=== PATIENT | female | born 1960 | race Caucasian/White ===

== ENCOUNTER 2016-07-27 19:09 | Emergency (ER) | payer MEDICARE, OTHER ==
[~2016-07-27] VITALS: Ht 157.5 cm; Wt 63.5 kg
[~2016-07-27 19:09] MED LIST: CYMBALTA30 MG PO; CYTOMEL5 MCG ORAL; HYDROCODON-ACE1 EAC4 ORAL; IBUPROFEN600 MG ORAL; MIRTAZAPINE45 MG PO; OXYCONTIN20 MG PO; OXYCONTIN40 MG PO; PERCOCET 10-321 EACH ORAL; SYNTHROID150 MCG PO; TOPIRAMATE25 MG PO; VIIBRYD40 MG PO
[2016-07-27 19:45] VITALS: BP 100/62
[2016-07-27] MEDS ORDERED: AZITHROMYCIN250 MG ORAL (19:45)
[2016-07-27] MEDS ORDERED: PROMETHAZINE-D118 ML ORAL (19:45)
[2016-07-27 19:58] VITALS: BP 122/60
--- NOTE | 2016-07-29 19:05 | Emergency Room Report ---
History of Present Illness General Chief Complaint: Flu Like Symptoms Source: Patient Present Illness HPI 56-year-old female presents to ED complaining of cough and congestive symptoms x3 weeks. States cough is productive with yellowish phlegm. Notes runny nose. Denies fevers chills. Denies ear ache or sore throat. Denies shortness of breath. No other aggravating relieving factors. Denies sick contacts recent travel. Denies any other associated symptom Allergies: Coded Allergies: METRONIDAZOLE (Verified Allergy, Unknown, 05/09/13) Uncoded Allergies: MAO INHIBITORS (Allergy, Unknown, 05/09/13) Patient History Past Medical History: migraines Past Surgical History: none Pertinent Family History: none Social History: Denies: alcohol use, drug use, smoking Now: No Immunizations: UTD Reviewed Nursing Documentation: PMH: Agreed, PSxH: Agreed Nursing Documentation-PMH Hx Cardiac Problems: Yes Hx Cancer: No Hx Gastrointestinal Problems: Yes Hx Neurological Problems: Yes - CHRONIC DAILY MIGRANES Hx Memory Loss: Yes Hx Headaches: Yes Review of Systems All Other Systems: negative except mentioned in HPI Physical Exam Vital Signs Date Time Temp Pulse Resp B/P Pulse Ox O2 Delivery O2 Flow Rate FiO2 07/27/16 19:17 98.1 70 15 95/56 96 Room Air Sp02 EP Interpretation: reviewed, normal General Appearance: no apparent distress, alert, GCS 15, non-toxic Head: normocephalic Eyes: bilateral eye PERRL, bilateral eye normal inspection ENT: hearing grossly normal, normal pharynx, no angioedema, normal voice Neck: normal inspection Respiratory: chest non-tender, lungs clear, normal breath sounds, speaking full sentences Cardiovascular #1: regular rate, rhythm, no edema Gastrointestinal: normal inspection Rectal: deferred Genitourinary: no CVA tenderness Musculoskeletal: normal inspection Neurologic: alert, oriented x3, responsive, motor strength/tone normal, sensory intact, speech normal Psychiatric: normal inspection Skin: normal inspection Lymphatic: normal inspection Medical Decision Making Diagnostic Impression: Primary Impression: Atypical pneumonia ER Course Hospital Course 56-year-old female presents to ED complaining of cough, runny nose x3 weeks Differential diagnoses include: URI, pharyngitis, otitis media, asthma Clinical course Patient placed on stretcher. After initial history, physical exam reveals a young male in no acute distress. Bilateral TM unremarkable. No pharyngeal erythema. No tonsillar exudates. No lymphadenopathy. lungs clear. abdomen soft. Given persistence of symptoms for 3 weeks we will treat with antibiotics and treat as atypical pneumonia Diagnosis -atypical pneumonia Stable and discharged home with prescription for cough syrup, Z-Malik. Instructed to followup with PMD. Return to ED if symptoms recur or worsen Last Vital Signs Date Time Temp Pulse Resp B/P Pulse Ox O2 Delivery O2 Flow Rate FiO2 07/27/16 19:58 97.8 72 17 122/60 96 Room Air Status: improved Disposition: HOME, SELF-CARE Condition: Stable Scripts D-Methorphan Hb/Prometh Hcl* (PROMETHAZINE-DM SYRUP*) 118 Ml Syrup 5 ML ORAL Q6H Y for For Cough for 7 Days, ML 0 Refills Prov: ANDREA MILLER M.D. 07/27/16 Azithromycin* (ZITHROMAX*) 250 Mg Tablet 250 MG ORAL DAILY, #6 TAB 0 Refills Take two tablets by mouth today, then take one tablet by mouth daily for four days Prov: ANDREA MILLER M.D. 07/27/16 Referrals: NON PHYSICIAN (PCP) Patient Instructions: Community-Acquired Pneumonia, Adult, [id number] ANDREA MILLER M.D. Jul 29, 2016 19:04
== END 2016-07-27 20:00 | disposition home or self-care (01) ==
LOC: EMR 20:00
DX: J18.9 Pneumonia, unspecified organism (principal); Z86.79 Personal history of other diseases of the circulatory system; Z87.19 Personal history of other diseases of the digestive system
CPT/HCPCS: 99284

== ENCOUNTER 2016-08-05 17:34 | Emergency (ER) | payer OTHER ==
[~2016-08-05] VITALS: Ht 157.5 cm; Wt 61.2 kg
[~2016-08-05 17:34] MED LIST changes: +AZITHROMYCIN250 MG ORAL; +PROMETHAZINE-D118 ML ORAL
[2016-08-05] MEDS ORDERED: SUBOXONE 8 MG-1 EAC2 SL (17:57)
[2016-08-05] MEDS ORDERED: KLONOPIN1 MG ORAL (17:58)
[2016-08-05 18:02] VITALS: BP 124/71
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
[2016-08-05 19:41] VITALS: BP 127/74
[2016-08-05 19:42] VITALS: BP 124/71
--- NOTE | 2016-08-06 09:32 | Diagnostic Imaging Report ---
Indications: Left knee pain Technique: 3 views of the left knee Findings: Comparison: None No fracture, dislocation, lytic destruction, periosteal reaction, joint space widening or effusion, surrounding soft tissue abnormality, or other acute changes demonstrated. Small well-corticated calcific/ossific densities reside in the regions of the distal aspect of the quadriceps tendon, proximal aspect of the patellar tendon. Small spurs emanate from the respective patellar insertion sites. Small osteophytes margins of patellofemoral and knee joint spaces without narrowing. No additional chronic changes demonstrated. IMPRESSION: No evidence of acute abnormality Mild osteoarthritis Patellar enthesophytes Quadriceps and patellar tendinopathy
--- NOTE | 2016-08-08 15:54 | Diagnostic Imaging Report ---
Indications: Neck pain Technique: 5 views of the cervical spine. Findings: Comparison: None. Lordotic curvature is straightened several millimeter anterior subluxation of C7 on T1, T1 and T2. Remainder of vertebral alignment is intact. No fracture, facet subluxation or dislocation, prevertebral soft tissue swelling, or other acute changes are identified. Osteophytes at margins of C4-5 through C7-T1 disc spaces. C4-5, C7-T1 disc space is narrowed.. Spinal canal and left neural foramina appear normal in caliber. Suboptimal positioning of other oblique view or metastatic evaluation of lower right neural foramina. IMPRESSION: Straightening of cervical lordosis. This may be secondary to degenerative changes, positioning and/or muscular spasm.. C7-T1 and T1-T2 grade 1 anterior spondylolisthesis, nonspecific, likely chronic degenerative in nature. Lateral flexion and extension radiographs may be obtained to ascertain stability. Multilevel degenerative disc disease. Neural impingement not excludable. Consider MRI for more detailed evaluation, as clinically indicated.
== END 2016-08-05 19:42 | disposition home or self-care (01) ==
LOC: EMR 18:21
DX: S80.02XA Contusion of left knee, initial encounter (principal); S60.512A Abrasion of left hand, initial encounter; Y04.0XXA Assault by unarmed brawl or fight, initial encounter; Y92.810 Car as the place of occurrence of the external cause; M17.12 Unilateral primary osteoarthritis, left knee; M76.52 Patellar tendinitis, left knee
CPT/HCPCS: 72050; 99283

== ENCOUNTER 2018-09-19 15:28 | Inpatient (IN) | payer MEDICARE, OTHER ==
[~2018-09-19] VITALS: Ht 157.5 cm; Wt 64.4 kg
[~2018-09-19 15:28] MED LIST changes: +KLONOPIN1 MG ORAL; +SUBOXONE 8 MG-1 EAC2 SL
[2018-09-19 15:40] VITALS: BP 94/61
--- NOTE | 2018-09-19 15:40 | NUR ---
ED Nurse Note: Patient walked into ED c/o of a feral cat bite sustained 3 days ago, laure states that she was currently at [facility] urgent care where she received antibiotics. at time of arrival patients left hand is currently inflamed, no tunneling noted but there are stripes of redness going up the left arm. patient is alert and oriented x4, ambulatory with a steady gait.
[2018-09-19] MEDS ORDERED: AMOX TR-K CLV1 EAC2 ORAL (15:42)
[2018-09-19] MEDS ORDERED: Ampicillin/Sulbactam Sod 3 GM in NS 110 ML IVPB ONE (16:00)
[2018-09-19 16:34] LABS: BASOPHILS % (AUTO) 1.7 % (0.0-2.0); EOSINOPHILS % (AUTO) 0.6 % (0.0-3.0); HEMATOCRIT 40.2 % (37.0-47.0); HEMOGLOBIN 13.4 G/DL (12.0-16.0); LYMPHOCYTES % (AUTO) 19.4 % (20.0-45.0); MEAN CORPUSCULAR VOLUME 92 FL (80-99); MONOCYTES % (AUTO) 9.8 % (1.0-10.0); NEUTROPHILS % (AUTO) 68.6 % (45.0-75.0); PLATELET COUNT 233 K/UL (150-450); RED BLOOD COUNT 4.36 M/UL (4.20-5.40); RED CELL DISTRIBUTION WIDTH 11.5 % (11.6-14.8); WHITE BLOOD COUNT 7.2 K/UL (4.8-10.8)
[2018-09-19 16:47] LABS: ANION GAP 7 mmol/L (5-15); BLOOD UREA NITROGEN 18 mg/dL (7-18); CALCIUM 8.8 MG/DL (8.5-10.1); CARBON DIOXIDE 26 MMOL/L (21-32); CHLORIDE 107 MMOL/L (98-107); POTASSIUM 4.6 MMOL/L (3.5-5.1); SODIUM 140 MMOL/L (136-145)
[2018-09-19 16:51] LABS: ALANINE AMINOTRANSFERASE 43 U/L (12-78); ALBUMIN 3.4 G/DL (3.4-5.0); ALKALINE PHOSPHATASE 73 U/L (46-116); ASPARTATE AMINO TRANSFERASE 81 U/L (15-37); BILIRUBIN,TOTAL 0.4 MG/DL (0.2-1.0)
--- NOTE | 2018-09-19 19:17 | NUR ---
HAND-OFF: Report received from Jake Causey RN .
--- NOTE | 2018-09-19 20:05 | Emergency Room Report ---
History of Present Illness General Chief Complaint: Skin Rash/Abscess Source: Patient Present Illness HPI 58-year-old female presents ED for evaluation. Complaining of left hand pain and swelling. States that she was bitten by a cat 2 days ago. States cat was vaccinated. Patient was seen at [facility] urgent care yesterday and given IM antibiotics in discharged with Augmentin. Patient went back today and noticed that the erythema was extending to the wrist and was referred to ER. Patient denies fevers or chills. Denies pain. No other aggravating relieving factors. Denies any other associated symptoms Allergies: Coded Allergies: METRONIDAZOLE (Verified Allergy, Unknown, 05/09/13) Uncoded Allergies: MAO INHIBITORS (Allergy, Unknown, 05/09/13) Patient History Past Medical History: CAD, migraines Past Surgical History: none Pertinent Family History: none Social History: Denies: smoking, alcohol use, drug use Now: No Immunizations: UTD Reviewed Nursing Documentation: PMH: Agreed; PSxH: Agreed Nursing Documentation-PMH Past Medical History: No History, Except For Hx Cardiac Problems: Yes Hx Gastrointestinal Problems: Yes Hx Neurological Problems: Yes - CHRONIC DAILY MIGRANES Hx Memory Loss: Yes Hx Headaches: Yes Review of Systems All Other Systems: negative except mentioned in HPI Physical Exam Vital Signs Date Time Temp Pulse Resp B/P (MAP) Pulse Ox O2 Delivery O2 Flow Rate FiO2 09/19/18 15:36 98.2 75 19 94/61 99 Room Air Sp02 EP Interpretation: reviewed, normal General Appearance: no apparent distress, alert, GCS 15, non-toxic Head: normocephalic Eyes: bilateral eye normal inspection, bilateral eye PERRL ENT: normal ENT inspection Neck: normal inspection Respiratory: normal inspection Cardiovascular #1: normal inspection Gastrointestinal: normal inspection Rectal: deferred Genitourinary: no CVA tenderness Musculoskeletal: swelling - L hand Neurologic: alert, oriented x3, responsive, motor strength/tone normal, sensory intact, speech normal Psychiatric: normal inspection Skin: other - erythema/induration L thumb extending to L wrist Lymphatic: normal inspection Medical Decision Making Diagnostic Impression: Primary Impression: Cellulitis of left hand Additional Impression: Cat bite Qualified Codes: W55.01XA - Bitten by cat, initial encounter ER Course Hospital Course 58-year-old female presents to ED with redness, swelling to L hand s/p cat bite Differential diagnoses include: Cellulitis, abscess, rash. Clinical course Patient placed on stretcher. After initial history and physical I ordered labs , blood Cx, IVFs labs reviewed -no leukocytosis, Hb/Hct stable, no electrolyte abnormalities. Reviewed case with Dr. Galan (plastics/hand); he agrees patient is failing outpatient therapy and needs admission for IV antibiotics. he will consult broad spectrum antibiotics given. Case discussed with Dr Douglas and he agreed to accept the patient to his service for further care and support Diagnosis - cellulitis of L hand, cat bite Patient admitted to floor in serious condition Labs Test 09/19/18 16:20 White Blood Count 7.2 K/UL (4.8-10.8) Red Blood Count 4.36 M/UL (4.20-5.40) Hemoglobin 13.4 G/DL (12.0-16.0) Hematocrit 40.2 % (37.0-47.0) Mean Corpuscular Volume 92 FL (80-99) Mean Corpuscular Hemoglobin 30.7 PG (27.0-31.0) Mean Corpuscular Hemoglobin Concent 33.3 G/DL (32.0-36.0) Red Cell Distribution Width 11.5 % (11.6-14.8) Platelet Count 233 K/UL (150-450) Mean Platelet Volume 5.1 FL (6.5-10.1) Neutrophils (%) (Auto) 68.6 % (45.0-75.0) Lymphocytes (%) (Auto) 19.4 % (20.0-45.0) Monocytes (%) (Auto) 9.8 % (1.0-10.0) Eosinophils (%) (Auto) 0.6 % (0.0-3.0) Basophils (%) (Auto) 1.7 % (0.0-2.0) Sodium Level 140 MMOL/L (136-145) Potassium Level 4.6 MMOL/L (3.5-5.1) Chloride Level 107 MMOL/L (98-107) Carbon Dioxide Level 26 MMOL/L (21-32) Anion Gap 7 mmol/L (5-15) Blood Urea Nitrogen 18 mg/dL (7-18) Creatinine 1.0 MG/DL (0.55-1.30) Estimat Glomerular Filtration Rate 56.5 mL/min (>60) Glucose Level 112 MG/DL (74-106) Lactic Acid Level 1.20 mmol/L (0.4-2.0) Calcium Level 8.8 MG/DL (8.5-10.1) Total Bilirubin 0.4 MG/DL (0.2-1.0) Aspartate Amino Transf (AST/SGOT) 81 U/L (15-37) Alanine Aminotransferase (ALT/SGPT) 43 U/L (12-78) Alkaline Phosphatase 73 U/L (46-116) Total Protein 6.8 G/DL (6.4-8.2) Albumin 3.4 G/DL (3.4-5.0) Globulin 3.4 g/dL Albumin/Globulin Ratio 1.0 (1.0-2.7) Last Vital Signs Date Time Temp Pulse Resp B/P (MAP) Pulse Ox O2 Delivery O2 Flow Rate FiO2 09/19/18 15:40 98.2 75 19 94/61 99 Room Air Status: improved Disposition: ADMITTED INPATIENT Condition: Serious Referrals: [facility],REFERRING (PCP) Dean Ram MD Sep 19, 2018 20:05
[2018-09-19] MEDS ORDERED: Albuterol/Ipratropium 3ml neb HHN PRN (20:15)
[2018-09-19] MEDS ORDERED: Miralax 17gm pkt ORAL PRN (20:15)
[2018-09-19] MEDS ORDERED: Nitroglycerin Subl 0.4mg tab SL PRN (20:15)
[2018-09-19] MEDS ORDERED: Morphine Sulfate 2mg/ml Inj(IV/IM USE ONLY) IVP PRN (20:15)
--- NOTE | 2018-09-19 20:34 | NUR ---
ED Nurse Note: PATIENT CLEARED FOR TRANSPORT TO MED SUR[facility]. PATIENT IS A&OX4, NO S/S OF ACUTE DISTRESS. REPORT CALLED INTO EUGENIA RN PRIOR TO TRANSPORT. PATIENT WILL BE ESCORTED BY [facility] TO FLOOR.
[2018-09-19 21:00] VITALS: BP 113/65
--- NOTE | 2018-09-19 22:00 | NUR ---
NURSE NOTES: RECEIVED REPORT FROM SHAQUILLE BAUTISTA. PATIENT IN BED, AOX4. IV IN PLACE, PATENT. HAS COMPLAINTS OF PAIN, WILL BE GIVEN PAIN MEDICATION ORDERED. CELLULITIS ON LEFT HAND NOTED TO SWOLLEN AND REDNESS, NO OPEN WOUND OR DRAINAGE. ALSO SLIGHT REDNESS ON LEFT FOREARM. WCP TAKEN. NO S/S DISTRESS NOTED. REVIEWED PATIENT BELONGINGS WITH PATIENT VERBALLY STATING THEM PATIENT DID NOT WANT NURSE GOING THROUGH HER BELONGINGS AND PATIENT HAD MEDICATION BOTTLES THAT SHE DID NOT WANT TO GIVE TO THE PHARMACY STATING "NO I WANT TO KEEP MY MEDICINE", NURSE EXPLAINED THAT THE MEDICATION WILL BE KEPT SAFE IN THE HOSPITAL PHARMACY AND SHE CAN HAVE IT BACK UPON DISCHARGE, PATIENT STILL ADAMANTLY REFUSED. NURSE ALSO EXPLAINED THAT WHILE PATIENT IS IN THE HOSPITAL, SHE CANNOT TAKE ANY OF THE MEDICATIONS, PATIENT VERBALIZED UNDERSTANDING. CHARGE NURSE AWARE. PATIENT REFUSED TO HAVE BELONGINGS PUT IN SAFE AND SIGNED THE BELONGINGS LIST. BED IN LOWEST POSITION, CALL LIGHT WITHIN REACH. WILL CONTINUE TO MONITOR.
[2018-09-19] MEDS: Heparin 5000 units/ml inj SUBQ SCH (22:07)
[2018-09-19] MEDS: Cefepime HCl 2 GM in D5W 110 ML IV SCH (22:18)
[2018-09-20] MEDS: Ampicillin/Sulbactam Sod 1.5 GM in NS 55 ML IVPB SCH ×4 (00:39→19:20)
[2018-09-20 00:59] VITALS: BP 98/55
[2018-09-20] MEDS: Vancomycin 1 GM in D5W 275 ML IVPB SCH ×2 (01:16→19:56)
[2018-09-20 04:27] VITALS: BP 94/57
--- NOTE | 2018-09-20 07:27 | NUR ---
NURSE NOTES: PATIENT IV ACCESS ON RIGHT HAND 20 GAUGE BECAME PUFFY BUT PATIENT DENIES PAIN OR TENDERNESS, IV REMOVED. NEW IV ACCESS LEFT HAND 24 GAUGE, PATENT.
[2018-09-20 07:29] LABS: EOSINOPHILS % (AUTO) 1.9 % (0.0-3.0); HEMATOCRIT 38.4 % (37.0-47.0); HEMOGLOBIN 12.8 G/DL (12.0-16.0); LYMPHOCYTES % (AUTO) 39.8 % (20.0-45.0); MEAN CORPUSCULAR VOLUME 94 FL (80-99); MONOCYTES % (AUTO) 10.2 % (1.0-10.0); NEUTROPHILS % (AUTO) 47.2 % (45.0-75.0); PLATELET COUNT 225 K/UL (150-450); WHITE BLOOD COUNT 5.1 K/UL (4.8-10.8)
--- NOTE | 2018-09-20 07:39 | NUR ---
HAND-OFF: Report given to KIKO AMATO RN.
--- NOTE | 2018-09-20 07:40 | NUR ---
NURSE NOTES: Patient is awake and alert,respirations unlabored,patient getting Venous Duplex as ordered,no complaints at this time,call light within reach.
[2018-09-20 07:47] LABS: ALANINE AMINOTRANSFERASE 39 U/L (12-78); ALBUMIN 2.7 G/DL (3.4-5.0); ALBUMIN/GLOBULIN RATIO 0.9 (1.0-2.7); ALKALINE PHOSPHATASE 64 U/L (46-116); ANION GAP 7 mmol/L (5-15); ASPARTATE AMINO TRANSFERASE 58 U/L (15-37); BILIRUBIN,TOTAL 0.3 MG/DL (0.2-1.0); BLOOD UREA NITROGEN 20 mg/dL (7-18); CALCIUM 8.4 MG/DL (8.5-10.1); CARBON DIOXIDE 26 MMOL/L (21-32); CHLORIDE 109 MMOL/L (98-107); CREATININE 0.8 MG/DL (0.55-1.30); POTASSIUM 3.8 MMOL/L (3.5-5.1); SODIUM 142 MMOL/L (136-145)
[2018-09-20 08:33] VITALS: BP 90/57
[2018-09-20] MEDS: DULoxetine 30mg cap ORAL SCH ×2 (08:54→18:00)
[2018-09-20] MEDS: Heparin 5000 units/ml inj SUBQ SCH ×2 (08:57→20:53)
--- NOTE | 2018-09-20 10:34 | NUR ---
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 98.2, Resp. 19, O2Sat 99 Room Air RDW 11.5, MPV 5.1, Lymph% 19.4 IS: Doppler Scan of lower extremity venous Morphine Sulfate IVP NS IV x1L Ampicillin Sodium IVPB Med/Surge Status DC plan return to home
[2018-09-20] MEDS: Cefepime HCl 2 GM in D5W 110 ML IV SCH (10:54)
[2018-09-20 13:00] VITALS: BP 129/57
--- NOTE | 2018-09-20 16:12 | Consultation ---
History of Present Illness General Date patient seen: Sep 20, 2018 Chief Complaint: Skin Rash/Abscess Present Illness HPI 58-year-old female presented to ED for evaluation of left hand pain and swelling. She was bitten by a cat 2 days ago. . Patient was seen at [facility] urgent care yesterday and given IM antibiotics in discharged with Augmentin. She went back today and noticed that the erythema was extending to the wrist and was referred to ER. She is admitted for further management. Allergies: Coded Allergies: METRONIDAZOLE (Verified Allergy, Unknown, 05/09/13) Uncoded Allergies: MAO INHIBITORS (Allergy, Unknown, 05/09/13) Medication History Scheduled Amoxicillin/Potassium Clav 875-125 Mg Tab* (Amox Tr-K Clv 875-125 Mg Tab*), 1 TAB ORAL EVERY 12 HOURS, (Reported) Azithromycin* (Zithromax*), 250 MG ORAL DAILY Buprenorphine Hcl/Naloxone Hcl (Suboxone 8 Mg-2 Mg Tablet Sl*), 1 TAB SL BID, ( Reported) Clonazepam* (Klonopin*), 1 MG ORAL Q6H, (Reported) Duloxetine Hcl* (Cymbalta*), 60 MG PO BID, (Reported) Levothyroxine Sodium* (Synthroid*), 100 MCG PO DAILY, (Reported) Liothyronine Sodium* (Cytomel*), 75 MCG ORAL DAILY, (Reported) Mirtazapine* (Remeron*), 90 MG PO QHS, (Reported) Scheduled PRN D-Methorphan Hb/Prometh Hcl* (Promethazine-Dm Syrup*), 5 ML ORAL Q6H PRN for For Cough Hydrocodone Bit/Acetaminophen 5-500 (Vicodin 5-500), 1 TAB ORAL Q6H PRN for For Pain, (Reported) Patient History Healthcare decision maker N Resuscitation status Advanced Directive on File Review of Systems All Other Systems: negative except mentioned in HPI Physical Exam General Appearance: WD/WN Lines, tubes and drains: peripheral HEENT: normocephalic, atraumatic Neck: non-tender, normal alignment Respiratory/Chest: chest wall non-tender, lungs clear Cardiovascular/Chest: normal peripheral pulses, normal rate Abdomen: normal bowel sounds, non tender Genitourinary/Rectal: normal genital exam, normal rectal exam Skin Exam: normal pigmentation 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 grossly normal Last 24 Hour Vital Signs Date Time Temp Pulse Resp B/P (MAP) Pulse Ox O2 Delivery O2 Flow Rate FiO2 09/20/18 13:00 97.7 65 18 129/57 (81) 97 09/20/18 08:33 98.2 60 18 90/57 (68) 95 09/20/18 04:27 97.8 63 18 94/57 (69) 97 09/20/18 00:59 95 09/20/18 00:59 98.6 68 18 98/55 (69) 09/19/18 23:16 98.2 09/19/18 21:30 Room Air 09/19/18 21:00 97.7 60 18 113/65 (81) 100 09/19/18 20:36 98.2 75 19 94/61 99 Room Air Intake and Output 09/19/18 09/20/18 19:00 07:00 Intake Total 110 ml 1560.0 ml Balance 110 ml 1560.0 ml Intake Oral 120 ml IV Total 110 ml 1440.0 ml # Voids 1 1 Laboratory Tests Test 09/19/18 16:20 09/20/18 05:23 White Blood Count 7.2 K/UL (4.8-10.8) 5.1 K/UL (4.8-10.8) Red Blood Count 4.36 M/UL (4.20-5.40) 4.10 M/UL (4.20-5.40) L Hemoglobin 13.4 G/DL (12.0-16.0) 12.8 G/DL (12.0-16.0) Hematocrit 40.2 % (37.0-47.0) 38.4 % (37.0-47.0) Mean Corpuscular Volume 92 FL (80-99) 94 FL (80-99) Mean Corpuscular Hemoglobin 30.7 PG (27.0-31.0) 31.3 PG (27.0-31.0) H Mean Corpuscular Hemoglobin Concent 33.3 G/DL (32.0-36.0) 33.5 G/DL (32.0-36.0) Red Cell Distribution Width 11.5 % (11.6-14.8) L 12.0 % (11.6-14.8) Platelet Count 233 K/UL (150-450) 225 K/UL (150-450) Mean Platelet Volume 5.1 FL (6.5-10.1) L 5.9 FL (6.5-10.1) L Neutrophils (%) (Auto) 68.6 % (45.0-75.0) 47.2 % (45.0-75.0) Lymphocytes (%) (Auto) 19.4 % (20.0-45.0) L 39.8 % (20.0-45.0) Monocytes (%) (Auto) 9.8 % (1.0-10.0) 10.2 % (1.0-10.0) H Eosinophils (%) (Auto) 0.6 % (0.0-3.0) 1.9 % (0.0-3.0) Basophils (%) (Auto) 1.7 % (0.0-2.0) 1.0 % (0.0-2.0) Sodium Level 140 MMOL/L (136-145) 142 MMOL/L (136-145) Potassium Level 4.6 MMOL/L (3.5-5.1) 3.8 MMOL/L (3.5-5.1) Chloride Level 107 MMOL/L (98-107) 109 MMOL/L (98-107) H Carbon Dioxide Level 26 MMOL/L (21-32) 26 MMOL/L (21-32) Anion Gap 7 mmol/L (5-15) 7 mmol/L (5-15) Blood Urea Nitrogen 18 mg/dL (7-18) 20 mg/dL (7-18) H Creatinine 1.0 MG/DL (0.55-1.30) 0.8 MG/DL (0.55-1.30) Estimat Glomerular Filtration Rate 56.5 mL/min (>60) > 60 mL/min (>60) Glucose Level 112 MG/DL (74-106) H 98 MG/DL (74-106) Lactic Acid Level 1.20 mmol/L (0.4-2.0) Calcium Level 8.8 MG/DL (8.5-10.1) 8.4 MG/DL (8.5-10.1) L Total Bilirubin 0.4 MG/DL (0.2-1.0) 0.3 MG/DL (0.2-1.0) Aspartate Amino Transf (AST/SGOT) 81 U/L (15-37) H 58 U/L (15-37) H Alanine Aminotransferase (ALT/SGPT) 43 U/L (12-78) 39 U/L (12-78) Alkaline Phosphatase 73 U/L (46-116) 64 U/L (46-116) Total Protein 6.8 G/DL (6.4-8.2) 5.7 G/DL (6.4-8.2) L Albumin 3.4 G/DL (3.4-5.0) 2.7 G/DL (3.4-5.0) L Globulin 3.4 g/dL 3.0 g/dL Albumin/Globulin Ratio 1.0 (1.0-2.7) 0.9 (1.0-2.7) L Height (Feet): 5 Height (Inches): 2.00 Weight (Pounds): 142 Medications Current Medications Medications (Trade) Dose Ordered Sig/Eugene Route PRN Reason Start Time Stop Time Status Last Admin Dose Admin Acetaminophen (Tylenol) 650 mg Q4H PRN ORAL fever 09/19/18 20:15 10/19/18 20:14 Albuterol/ Ipratropium (Albuterol/ Ipratropium) 3 ml Q4H PRN HHN Shortness of Breath 09/19/18 20:15 09/24/18 20:14 Ampicillin Sodium/ Sulbactam Sodium 1.5 gm/Sodium Chloride 55 ml @ 110 mls/hr Q6HR IVPB 09/20/18 00:00 09/27/18 00:00 09/20/18 13:06 Cefepime HCl 2 gm/ Dextrose 110 ml @ 220 mls/hr Q12H IV 09/19/18 22:00 09/26/18 21:59 09/20/18 10:54 Clonazepam (KlonoPIN) 1 mg Q6HR ORAL 09/20/18 00:00 09/27/18 00:00 09/20/18 13:06 Dextrose (Dextrose 50%) 25 ml STAT PRN IV Hypoglycemia 09/19/18 20:15 10/19/18 20:14 Dextrose (Dextrose 50%) 50 ml Q30M PRN IV Hypoglycemia 09/19/18 20:15 10/19/18 20:14 Duloxetine HCl (Cymbalta) 60 mg BID ORAL 09/20/18 09:00 10/20/18 08:59 Heparin Sodium (Porcine) (Heparin 5000 units/ml) 5,000 units EVERY 12 HOURS SUBQ 09/19/18 21:00 10/19/18 20:59 09/20/18 08:57 Levothyroxine Sodium (Synthroid) 100 mcg ACBREAKFAST ORAL 09/20/18 06:30 10/20/18 06:29 09/20/18 05:46 Morphine Sulfate (Morphine Sulfate) 2 mg Q4H PRN IVP Moderate Pain (Pain Scale 4-6) 09/19/18 20:15 09/26/18 20:14 09/19/18 22:46 Nitroglycerin (Ntg) 0.4 mg Q5M PRN SL Prn Chest Pain 09/19/18 20:15 10/19/18 20:14 Ondansetron HCl (Zofran) 4 mg Q6H PRN IVP Nausea & Vomiting 09/19/18 20:15 10/19/18 20:14 Polyethylene Glycol (Miralax) 17 gm DAILYPRN PRN ORAL Constipation 09/19/18 20:15 10/19/18 20:14 Temazepam (Restoril) 15 mg HSPRN PRN ORAL Insomnia 09/19/18 20:15 09/26/18 20:14 09/19/18 22:03 Vancomycin HCl 1 gm/Dextrose 275 ml @ 183.3 mls/ hr Q24H IVPB 09/20/18 00:30 09/25/18 00:29 09/20/18 01:16 Assessment/Plan Problem List: (1) Cellulitis of left hand ICD Codes: L03.114 - Cellulitis of left upper limb SNOMED: 60778197, [id number] (2) Cat bite ICD Codes: W55.01XA - Bitten by cat, initial encounter SNOMED: 384164460, [id number] Qualifiers: Qualified Codes: W55.01XA - Bitten by cat, initial encounter Assessment/Plan pt improving but she wants to go home today, I will ask ID about what abx to discharge her with. Velma Maguire MD Sep 20, 2018 16:12
[2018-09-20] MEDS ORDERED: BACTRIM DOUBLE S1 E1 ORAL (16:14)
[2018-09-20] MEDS ORDERED: CLEOCIN HCL300 MG PO (16:16)
[2018-09-20 16:35] VITALS: BP 106/52
--- NOTE | 2018-09-20 16:51 | Consultation ---
History of Present Illness General Date patient seen: Sep 20, 2018 Chief Complaint: Skin Rash/Abscess Present Illness HPI 58 y/o F with hx of CAD, migraine headaches presented to ED on 09/19 with L hand pain and swelling after a cat bite 2 days prior to admission. She was seen at [facility] urgent care 1 day prior to admission and was given IM antibiotics and discharged with Augmentin. Day of admission patient noticed erythema was extending to wrist. Denies f/c. Allergies: Coded Allergies: METRONIDAZOLE (Verified Allergy, Unknown, 05/09/13) Uncoded Allergies: MAO INHIBITORS (Allergy, Unknown, 05/09/13) Medication History Scheduled Amoxicillin/Potassium Clav 875-125 Mg Tab* (Amox Tr-K Clv 875-125 Mg Tab*), 1 TAB ORAL EVERY 12 HOURS, (Reported) Azithromycin* (Zithromax*), 250 MG ORAL DAILY Buprenorphine Hcl/Naloxone Hcl (Suboxone 8 Mg-2 Mg Tablet Sl*), 1 TAB SL BID, ( Reported) Clindamycin Hcl (Cleocin Hcl), 300 MG PO EVERY 6 HOURS Clonazepam* (Klonopin*), 1 MG ORAL Q6H, (Reported) Duloxetine Hcl* (Cymbalta*), 60 MG PO BID, (Reported) Levothyroxine Sodium* (Synthroid*), 100 MCG PO DAILY, (Reported) Liothyronine Sodium* (Cytomel*), 75 MCG ORAL DAILY, (Reported) Mirtazapine* (Remeron*), 90 MG PO QHS, (Reported) Trimethoprim/Sulfamethoxazole (Bactrim 400-80 mg Tablet), 7 TAB ORAL TWICE A DAY Scheduled PRN D-Methorphan Hb/Prometh Hcl* (Promethazine-Dm Syrup*), 5 ML ORAL Q6H PRN for For Cough Hydrocodone Bit/Acetaminophen 5-500 (Vicodin 5-500), 1 TAB ORAL Q6H PRN for For Pain, (Reported) Patient History Healthcare decision maker N Resuscitation status Advanced Directive on File Patient History Narrative Pmhx: as above Shx: Denies: smoking, alcohol use, drug use Fhx: non contributory Review of Systems All Other Systems: negative except mentioned in HPI Physical Exam Physical Exam Narrative General Appearance: WD/WN Lines, tubes and drains: peripheral HEENT: normocephalic, atraumatic Neck: non-tender, normal alignment Respiratory/Chest: chest wall non-tender, lungs clear Cardiovascular/Chest: normal peripheral pulses, normal rate Abdomen: normal bowel sounds, non tender Skin Exam: normal pigmentation 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 normal Last 24 Hour Vital Signs Date Time Temp Pulse Resp B/P (MAP) Pulse Ox O2 Delivery O2 Flow Rate FiO2 09/20/18 16:35 97.7 64 18 106/52 (70) 98 09/20/18 13:00 97.7 65 18 129/57 (81) 97 09/20/18 08:33 98.2 60 18 90/57 (68) 95 09/20/18 04:27 97.8 63 18 94/57 (69) 97 09/20/18 00:59 95 09/20/18 00:59 98.6 68 18 98/55 (69) 09/19/18 23:16 98.2 09/19/18 21:30 Room Air 09/19/18 21:00 97.7 60 18 113/65 (81) 100 09/19/18 20:36 98.2 75 19 94/61 99 Room Air Intake and Output 09/19/18 09/20/18 19:00 07:00 Intake Total 110 ml 1560.0 ml Balance 110 ml 1560.0 ml Intake Oral 120 ml IV Total 110 ml 1440.0 ml # Voids 1 1 Laboratory Tests Test 09/20/18 05:23 White Blood Count 5.1 K/UL (4.8-10.8) Red Blood Count 4.10 M/UL (4.20-5.40) L Hemoglobin 12.8 G/DL (12.0-16.0) Hematocrit 38.4 % (37.0-47.0) Mean Corpuscular Volume 94 FL (80-99) Mean Corpuscular Hemoglobin 31.3 PG (27.0-31.0) H Mean Corpuscular Hemoglobin Concent 33.5 G/DL (32.0-36.0) Red Cell Distribution Width 12.0 % (11.6-14.8) Platelet Count 225 K/UL (150-450) Mean Platelet Volume 5.9 FL (6.5-10.1) L Neutrophils (%) (Auto) 47.2 % (45.0-75.0) Lymphocytes (%) (Auto) 39.8 % (20.0-45.0) Monocytes (%) (Auto) 10.2 % (1.0-10.0) H Eosinophils (%) (Auto) 1.9 % (0.0-3.0) Basophils (%) (Auto) 1.0 % (0.0-2.0) Sodium Level 142 MMOL/L (136-145) Potassium Level 3.8 MMOL/L (3.5-5.1) Chloride Level 109 MMOL/L (98-107) H Carbon Dioxide Level 26 MMOL/L (21-32) Anion Gap 7 mmol/L (5-15) Blood Urea Nitrogen 20 mg/dL (7-18) H Creatinine 0.8 MG/DL (0.55-1.30) Estimat Glomerular Filtration Rate > 60 mL/min (>60) Glucose Level 98 MG/DL (74-106) Calcium Level 8.4 MG/DL (8.5-10.1) L Total Bilirubin 0.3 MG/DL (0.2-1.0) Aspartate Amino Transf (AST/SGOT) 58 U/L (15-37) H Alanine Aminotransferase (ALT/SGPT) 39 U/L (12-78) Alkaline Phosphatase 64 U/L (46-116) Total Protein 5.7 G/DL (6.4-8.2) L Albumin 2.7 G/DL (3.4-5.0) L Globulin 3.0 g/dL Albumin/Globulin Ratio 0.9 (1.0-2.7) L Height (Feet): 5 Height (Inches): 2.00 Weight (Pounds): 142 Medications Current Medications Medications (Trade) Dose Ordered Sig/Eugene Route PRN Reason Start Time Stop Time Status Last Admin Dose Admin Acetaminophen (Tylenol) 650 mg Q4H PRN ORAL fever 09/19/18 20:15 10/19/18 20:14 Albuterol/ Ipratropium (Albuterol/ Ipratropium) 3 ml Q4H PRN HHN Shortness of Breath 09/19/18 20:15 09/24/18 20:14 Ampicillin Sodium/ Sulbactam Sodium 1.5 gm/Sodium Chloride 55 ml @ 110 mls/hr Q6HR IVPB 09/20/18 00:00 09/27/18 00:00 09/20/18 13:06 Cefepime HCl 2 gm/ Dextrose 110 ml @ 220 mls/hr Q12H IV 09/19/18 22:00 09/26/18 21:59 09/20/18 10:54 Clonazepam (KlonoPIN) 1 mg Q6HR ORAL 09/20/18 00:00 09/27/18 00:00 09/20/18 13:06 Dextrose (Dextrose 50%) 25 ml STAT PRN IV Hypoglycemia 09/19/18 20:15 10/19/18 20:14 Dextrose (Dextrose 50%) 50 ml Q30M PRN IV Hypoglycemia 09/19/18 20:15 10/19/18 20:14 Duloxetine HCl (Cymbalta) 60 mg BID ORAL 09/20/18 09:00 10/20/18 08:59 Heparin Sodium (Porcine) (Heparin 5000 units/ml) 5,000 units EVERY 12 HOURS SUBQ 09/19/18 21:00 10/19/18 20:59 09/20/18 08:57 Levothyroxine Sodium (Synthroid) 100 mcg ACBREAKFAST ORAL 09/20/18 06:30 10/20/18 06:29 09/20/18 05:46 Morphine Sulfate (Morphine Sulfate) 2 mg Q4H PRN IVP Moderate Pain (Pain Scale 4-6) 09/19/18 20:15 09/26/18 20:14 09/19/18 22:46 Nitroglycerin (Ntg) 0.4 mg Q5M PRN SL Prn Chest Pain 09/19/18 20:15 10/19/18 20:14 Ondansetron HCl (Zofran) 4 mg Q6H PRN IVP Nausea & Vomiting 09/19/18 20:15 10/19/18 20:14 Polyethylene Glycol (Miralax) 17 gm DAILYPRN PRN ORAL Constipation 09/19/18 20:15 10/19/18 20:14 Temazepam (Restoril) 15 mg HSPRN PRN ORAL Insomnia 09/19/18 20:15 09/26/18 20:14 09/19/18 22:03 Vancomycin HCl 1 gm/Dextrose 275 ml @ 183.3 mls/ hr Q24H IVPB 09/20/18 00:30 09/25/18 00:29 09/20/18 01:16 Assessment/Plan Assessment/Plan Abx: IV Vancomycin 09/20- Cefepime 09/19- Unasyn 09/19- Assessment: L hand cellulitis 2ry to cat bite; improving Afebrile No leukocytosis CAD migraine headaches Plan: -Continue IV Vancomycin #1 and Unasyn #/ -upon discharge can be transition to PO Augmentin and bactrim -D/c Cefepime #2 -MRI hand if worsening or not improving (as of now; favorable improvement in 1st 24hrs on IV abx) -f/u cx -Monitor CBC/CMP, temperatures Thank you for this consultation. Will continue to follow along with you. Discussed with SHAQUILLE. Margo Bhakta M.D. Sep 20, 2018 16:51
--- NOTE | 2018-09-20 18:49 | History & Physical ---
History and Physical History & Physicial Jose Douglas MD Sep 20, 2018 18:49
--- NOTE | 2018-09-20 19:00 | NUR ---
NURSE NOTES: Patient will be discharge after receiving IV antibiotic,DR Maguire state to give IV Vancomycin dose prior to discharge .
[2018-09-20 20:00] VITALS: BP 100/60
--- NOTE | 2018-09-20 20:00 | NUR ---
HAND-OFF: Report given to Maria Esther CORBIN.
--- NOTE | 2018-09-20 20:19 | NUR ---
NURSE NOTES: Pt alert oriented and sitting at bedside with Vancomycin IV running, states she is ready to go, I informed her that I will remove her IV and help her get ready to be discharged once the Vancomycin is finished, she verbalized understanding. Call light within reach, able to make needs known.
--- NOTE | 2018-09-20 20:54 | NUR ---
NURSE NOTES: Pt refused Heparin, explained the medication, pt is ambulatory.
--- NOTE | 2018-09-20 22:10 | NUR ---
NURSE NOTES: Pt Discharged with belongings and new medications. After signing the belongings list, she stated she didn't have her portable client support representative and the last time she had it was in ER on night. She stated that it didn't come up with her when she was brought on this floor. We went to ER and it wasn't located, security also checked lost and found and it wasn't located. The pt spoke to Security and he gave her a phone number to contact regarding her missing item.
--- NOTE | 2018-09-21 00:45 | History and Physical Report ---
DATE OF ADMISSION: 09/19/2018 CHIEF COMPLAINT: Left hand redness. HISTORY OF PRESENT ILLNESS: This is a 58-year-old very delightful female with past medical history significant for coronary artery disease, migraine headache, hypothyroidism, and depression, who has presented to the hospital complaining about left hand redness after had a cat bite 2 days ago. The patient went to the Urgent Care 2 days ago, received Augmentin. She took 1 day of Augmentin. However, her hand did not improve, became more swollen, had a limited range of motion on the fingers, and decided to come to the hospital. Shortly after initial evaluation in the emergency, the patient was admitted to the hospital with left hand cellulitis secondary to the cat bite. PAST MEDICAL HISTORY/PAST SURGICAL HISTORY: As above. History of coronary artery disease, depression, hypothyroidism, and migraine headaches. MEDICATIONS AT HOME: Please refer to medication reconciliation. ALLERGIES: MAOI inhibitors as well as Flagyl. SOCIAL HISTORY: The patient denies any smoking, alcohol, or drugs. FAMILY HISTORY: Noncontributory. REVIEW OF SYSTEMS: Mostly as above. Denies any dysuria, frequency, or hematuria. Denies any hemoptysis or hematochezia. Denies any suicidal or homicidal ideation. Denies any loss of consciousness. Denies any double vision. Denies any fall or head trauma. PHYSICAL EXAMINATION: VITAL SIGNS: On admission, temperature is 98.2, pulse of 75, respirations 19, and blood pressure initially 94/61 and repeat one is 113/65. GENERAL: The patient is awake and responsive. No acute distress. HEAD AND NECK: Pupils are reactive to light. Extraocular movements intact. NECK: Supple. No JVD. LUNGS: Good air entry. No wheezing or rales. HEART: Reveals S1 and S2. Regular rhythm. No gallops. ABDOMEN: Soft, nondistended, and nontender. Positive bowel sounds. EXTREMITIES: No cyanosis, clubbing, or edema. Left upper extremity, left hand second and third finger has a cellulitis as well as redness as well as erythema with edema. NEUROLOGIC: INDUSTRIAL PROPERTY APPRAISER II through XII grossly intact. Motor is 5/5 in all extremities. SKIN: Has a bilateral upper extremity tattoo noted. LABORATORY AND DIAGNOSTIC DATA: On admission, WBC of 7.2, hemoglobin 13, hematocrit 40, and platelets is 233,000. . Sodium , chloride 107, bicarbonate 26, BUN 18, creatinine 1.0, and glucose is 112. Lactic acid is 1.20. AST of 18, ALT of 43, alkaline phosphate is 73. Albumin is 3.4. ASSESSMENT: 1. Left hand cellulitis, most likely secondary to cat bite. 2. Hypothyroidism. 3. Depression. 4. Coronary artery disease. PLAN: 1. Admit the patient to medical/surgical. 2. We will follow up with Dr. Bhakta, consultation from ID. 3. Broad-spectrum antibiotics with Unasyn and vancomycin was given 1 dose. 4. Code status is Full Code. 5. DVT prophylaxis with heparin subcutaneous. 6. Resume home medication. 7. Follow up with the cultures. Jose Douglas M.D. DR: STEFANO JOB#: [id number] CC:
--- NOTE | 2018-09-22 11:52 | NUR ---
CASE MANAGEMENT: CM review and clinical information (face sheet/ ER MD notes/ H&P) faxed to [facility] Dept @ [phone]. T#: [id number]
--- NOTE | 2018-09-23 09:07 | Discharge Summary ---
Discharge Summary Discharge Summary _ DATE OF ADMISSION: 09/19/2018 DATE OF DISCHARGE: DISCHARGED BY: Dr. Douglas REASON FOR ADMISSION: 58 years old female with past medical history of coronary artery disease, depression, hypothyroidism, migraine headaches, presented to the hospital complaining of the left hand redness and swelling after a cat bite 2 days ago. Patient went to urgent care after the incident and received Augmentin. She took Augmentin for 1 day, however her hand condition did not improve. Instead her hand became more swollen She had limited range of motion of the fingers, and she decided to come to the hospital for evaluation. Shortly after initial evaluation in emergency department, patient was admitted to the hospital for left hand cellulitis secondary to cat bite. CONSULTANTS: pulmonary Dr. Maguire ID specialist Dr. Jackson [facility] COURSE: Patient admitted to medical surgical floor and started on antibiotic as per infectious disease specialist recommendation. DVT prophylaxis provided. Home medication resumed. Pain management was provided as needed. Bowel regimen instituted. Supportive care provided. Patient clinically improved. Left hand edema and erythema decreased. Pain controlled. Patient was stable for discharge home and complete oral antibiotic course. Due to rapid and unexpected improvement in patient condition, patient was discharged in 1 day. FINAL DIAGNOSES: Left hand cellulitis due to cat bite Hypothyroidism Depression Coronary artery disease DISCHARGE MEDICATIONS: See Medication Reconciliation list. DISCHARGE INSTRUCTIONS: Patient was discharged home. Follow up with primary care provider in one week. I have been assigned to dictate discharge summary for this account. I was not involved in the patient's management. Kiesha Brice NP Sep 23, 2018 09:07
== END 2018-09-20 21:50 | disposition home or self-care (01) | DRG 603 ==
LOC: EMR 18:15 → EDBEDREQ 20:39 → 4E 20:45
DX: L03.114 Cellulitis of left upper limb (principal); S69.82XA Other specified injuries of left wrist, hand and finger(s), initial encounter; W55.01XA Bitten by cat, initial encounter; E03.9 Hypothyroidism, unspecified; F32.9 Major depressive disorder, single episode, unspecified; I25.10 Atherosclerotic heart disease of native coronary artery without angina pectoris; Z88.8 Allergy status to other drugs, medicaments and biological substances
CPT/HCPCS: 36415; 80053; 83605; 85025; 87040; 93970; 96361; 96365; 99285